=== PATIENT | male | born 1955 | race Caucasian/White ===

== ENCOUNTER 2022-08-18 09:15 | Day surgery (SDC) | payer BC, MEDICARE ==
[~2022-08-18] VITALS: Ht 188 cm; Wt 85.2 kg
[2022-08-18] MEDS ORDERED: SALMON OIL PO (09:32)
--- NOTE | 2022-08-18 10:46 | NUR ---
PT AWAKE AND ALERT. FAMILY AT BEDSIDE. NO COMPLAINTS OF PAIN OR NAUSEA. Ambulatory in Day Surgery. Surgical site prepped with 2% Chlorhexidine cloth wipe. History, Chart, Medications and Allergies reviewed before start of procedure.Pre-Op teaching done. Pt verbalizes understanding. Patient reports completing Chlorhexadine shower X2 prior to admission to hospital.Lungs clear T/O to Auscultation. Surgical site prepped with 2% Chlorhexidine cloth wipe.
[2022-08-18] MEDS ORDERED: Aspir 8181 MG PO (15:43)
[2022-08-18] MEDS ORDERED: Percocet 5-3251 EACH PO (15:44)
--- NOTE | 2022-08-18 19:20 | NUR ---
SHIFT SUMMARY PT A&OX4, VSS/RA, MAGAN PO, VOIDING WELL, AMB SBA FWW/GB - TO BRP AND IN HALLWAY, UP TO CHAIR FOR DINNER, PAIN MANAGED WELL WITH TYLENOL AND TORADOL. S/P L TKA, AQUACEL CDI, WBAT. REPORT PROVIDED TO YUNG CANCHOLA.
[2022-08-19 04:18] LABS: BASOPHILS ABSOLUTE AUTO 0.02 K/mm3 (0.00-0.23); BASOPHILS PERCENT AUTO 0 % (0-2); EOSINOPHILS PERCENT AUTO 0 % (0-6); Hematocrit 39.9 % (37.0-53.0); Hemoglobin 13.3 g/dL (13.5-17.5); IMMATURE GRAN ABSOLUTE AUTO 0.03 K/mm3 (0.00-0.10); IMMATURE GRAN PERCENT AUTO 0 % (0-1); LYMPHOCYTES ABSOLUTE AUTO 1.31 K/mm3 (0.84-5.20); LYMPHOCYTES PERCENT AUTO 11 % (21-46); MONOCYTES ABSOLUTE AUTO 0.89 K/mm3 (0.16-1.47); MONOCYTES PERCENT AUTO 8 % (4-13); Mean Corpuscular HGB 29.6 pg (26.0-34.0); Mean Corpuscular HGB Conc 33.3 g/dL (31.5-36.5); Mean Corpuscular Volume 89 fL (80-100); Mean Platelet Volume 10.5 fL (9.1-12.4); NEUTROPHILS ABSOLUTE AUTO 9.42 K/mm3 (1.96-9.15); NEUTROPHILS PERCENT AUTO 81 % (41-73); Platelet Count 179 K/mm3 (150-400); RDW Coefficient Variation 14.1 % (11.7-14.2); RDW Standard Deviation 45.3 fL (35.1-46.3); White Blood Cell Count 11.67 K/mm3 (4.00-11.30)
[2022-08-19 04:37] LABS: Bun/Creatinine Ratio 16.1 (12.0-20.0); Calcium, Blood 8.6 mg/dL (8.5-10.1); Creatinine, Blood 0.93 mg/dL (0.60-1.20); Magnesium, Blood 2.3 mg/dL (1.6-2.4); Potassium, Blood 4.5 mmol/L (3.5-5.5)
--- NOTE | 2022-08-19 06:51 | NUR ---
SHIFT SUMMARY AOX4. POD 1 L TOTAL KNEE REPAIR. AQUACEL DRESSING C/D/I. REPORTS 2-11/15 PAIN, PAIN INCREASES c MOVEMENT, MEDICATED 2X c 5MG OXYCODONE, SCHEDULED TYLENOL & TRAMADOL. PAIN LEVEL DECREASED PER PT. IND TO RESTROOM, STEADY BALANCE GAIT, USING FWW. VSS. CALL LIGHT IN REACH.
--- NOTE | 2022-08-19 10:20 | NUR ---
DISCHARGE PATIENT CLEARED THERAPY WELL. AQUACEL TO LEFT KNEE IS C/D/I. JUAN HOSE IN PLACE. AMBULATING WELL SBA W/ FWW & GB. REPORTS VERY MINIMAL PAIN, MANAGED PER EMAR. EATING, DRINKING, & VOIDING WELL. DISCUSSED DISCHARGE INSTRUCTIONS AND SENT WITH PATIENT WELL POLAR PACK AND AQUACEL DRESSINGS. ESCORTED OUT VIA W/C.
== END 2022-08-19 10:21 | disposition home or self-care (01) ==
LOC: ORSCMMR 09:15 → ORD 10:30 → ORSCMMR 10:30 → SURS 13:47 → ORSCMMR 08-19 10:21
PROVIDERS: Orthopaedic Surgery
PROC: 8E0Y0CZ Robotic Assisted Procedure of Lower Extremity, Open Approach (ICD-10-PCS; principal; 2022-08-18 10:30)
PROC: 0SRD0JA Replacement of Left Knee Joint with Synthetic Substitute, Uncemented, Open Approach (ICD-10-PCS; principal; 2022-08-18 10:30)
DX: M17.12 Unilateral primary osteoarthritis, left knee (principal); Z87.891 Personal history of nicotine dependence
CPT/HCPCS: 27447; 0055T; S2900; 36415; 73560-LT; 80048; 83735; 85025; 97110; 97116; 97161; A9270; C1776; J0171; J0690; J0735; J1100; J1885; J2250; J2405; J2704; J2795; J3010; J7120

== ENCOUNTER → 2025-02-06 | Outpatient (CLI) | payer BC, MEDICARE ==
[~2025-02-06] MED LIST: Aspir 8181 MG PO; Percocet 5-3251 EACH PO; SALMON OIL PO
[2025-02-06 15:52] LABS: Alanine Aminotransfer (ALT/SGP 29.0 U/L (12-78); Albumin, Blood 3.9 g/dL (3.4-5.0); Albumin/Globulin Ratio 1.2 (0.8-1.8); Anion Gap 7.0 mmol/L (3-11); Aspartate Aminotrans (AST/SGOT 27.0 U/L (12-37); Bilirubin, Total 0.6 mg/dL (0.1-1.0); Blood Urea Nitrogen 7.0 mg/dL (8-24); CO2, Blood 25.0 mmol/L (21-32); Calcium, Blood 8.4 mg/dL (8.5-10.1); Chloride, Blood 105.0 mmol/L (98-108); Creatinine, Blood 0.79 mg/dL (0.60-1.20); Globulin, Blood 3.3 g/dL (2.2-4.0); Glucose, Blood 87.0 mg/dL (70-99); Potassium, Blood 4.3 mmol/L (3.5-5.5); Sodium, Blood 133.0 mmol/L (136-145); Total Protein, Blood 7.2 g/dL (6.4-8.2)
== END ==
LOC: LAB SHORT 12:53 → LAB 12:53
PROVIDERS: Physician Assistant
DX: R03.0 Elevated blood-pressure reading, without diagnosis of hypertension (principal)
CPT/HCPCS: 80053